=== PATIENT | female | born 1970 | race Caucasian/White ===

== ENCOUNTER → 2018-04-27 15:36 | Outpatient (CLI) | payer OTHER, SELFPAY ==
[2018-04-27 15:58] LABS: Add Manual Diff / Slide Review NO; Basophils Percent Auto 0.6 % (0-2); Eosinophils Percent Auto 1.4 % (2-4); Hematocrit 36.8 % (36-46); Hemoglobin 12.7 g/dL (12.0-16.0); Lymphocytes Percent Auto 26.1 % (25-40); Mean Corpuscular HGB Conc 34.6 % (30-36); Mean Corpuscular Hemoglobin 31.1 PG (26-34); Monocytes Percent Auto 8.1 % (3-14); Neutrophils Absolute Auto 4100 /uL (3000-5900); Neutrophils Percent Auto 63.8 % (50-75); Platelet Count 324 X10^3/uL (150-400); Red Blood Cell Count 4.09 X10^6/uL (4.0-5.2); Red Cell Distribution Width 12.8 % (11.6-14.8); White Blood Cell Count 6.4 X10^3/uL (4.5-11.0)
[2018-04-27 16:10] LABS: Alanine Aminotransferase 24 IU/L (9-52); Albumin 4.2 g/dL (3.5-5.0); Albumin Globulin Ratio 1.4 (1.0-2.8); Alkaline Phosphatase 55 U/L (38-126); Aspartate Aminotransferase 21 IU/L (14-36); Bilirubin Total 0.6 mg/dL (0.2-1.3); Blood Urea Nitrogen 22 mg/dL (7-17); Calcium 9.3 mg/dL (8.4-10.2); Carbon Dioxide 23 mmol/L (22-32); Chloride 104 mmol/L (98-107); Estimated Glomerular Filt Rate 59.4 mL/min (>60); Globulin 3.1 g/dL (1.7-4.1); Glucose 96 mg/dL (70-100); HEMOLYSIS < 15 (0-50); Potassium 4.1 mmol/L (3.4-5.1); Sodium 138 mmol/L (137-145); Total Protein 7.3 g/dL (6.3-8.2)
== END ==
PROVIDERS: Family Provider Family Medicine; PCP Family Medicine; Visit Provider Nurse Practitioner Gerontology
DX: D05.12 Intraductal carcinoma in situ of left breast (principal)
CPT/HCPCS: 36415; 80053; 85025

== ENCOUNTER 2018-05-08 15:36 | Oncology outpatient (ONC) | payer OTHER, SELFPAY ==
[2018-05-08 16:12] VITALS: BP 111/72; PULSE 72; RESP 14; TEMP 37.2; O2SAT 99
--- NOTE | 2018-05-08 16:33 | ONC.APRN.PN ---
Assessment and Plan (1) Breast cancer Current visit: Yes Status: Acute 05/08/18 16:39 Lesa is a very pleasant 47 year old female who remains in clinical remission/surveillance since original diagnosis 2015. Reassuringly no red flags on exam today, no clinical signs or symptoms of disease recurrence. She is tolerating her tamoxifen without adverse effects, no further vaginal bleeding since having endometrial biopsy in November of 2017. She will continue with annual bilateral screening mammograms in November. I did caution her about the use of daily ibuprofen. She does have an acute knee injury she will transition in a week or so to Tylenol. RTC in 6 months for provider visit CBC CMP. Cont daily tamoxifen. - Time Spent with Patient 35 mins PN -Subjective Interval history: Lesa is a very pleasant 47-year-old female who is being seen in the clinic May 08, 2018. She carries a diagnosis of left-sided DCIS in clinical remission/surveillance since original diagnosis was made in 2015. Adjuvant chemotherapy in the form of tamoxifen was initiated November of 2015. Previous visit in November of 2017 the patient was experiencing some vaginal bleeding she was referred to her computer support specialist instructor. She underwent endometrial biopsy which patient reports was ?negative?. Since endometrial biopsy she has not had any further episodes of vaginal bleeding she does still continue to have mild infrequent hot flashes. Otherwise quite stable. Feeling well overall. 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 Clearly she walks quite a bit every day. Activity tolerance is stable. Weight is stable, no change with appetite. No headaches. No new aches or pains. She did injure her left knee a few weeks ago she has been taking Motrin daily. Past Medical/Surgical Hx The patient's past medical history is significant for: 1. 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 Her last mammogram was a bilateral screening back in July 2015. Of note, the patient's DCIS is ER and VA positive at 50% and 60%, respectively. Of note, the patient does have a significant family history with a maternal aunt with cervical cancer, a maternal aunt with pancreatic cancer, and a maternal grandmother with breast cancer. Unfortunately, insurance has denied BRCA testing x2. 2. Malignant melanoma of the left foot diagnosed in 2012, a T1B N1A M0 presentation. Patient remains in surveillance at this time. 3. Eczema involving the dorsum of the hands. Results - Imaging Additional studies: Procedures Administration of [id number]-ebvlyxd-gngefewce, combined (08/30/14) Closure of skin and subcutaneous tissue of other sites (08/30/14) Subtotal mastectomy (05/23/13) Home Medications and Allergies Home Medications Medication Instructions Recorded Confirmed Type tamoxifen 10 mg tablet 10 mg PO BID 05/05/18 05/05/18 History cholecalciferol (vitamin D3) 2,000 unit PO DAILY 05/08/18 05/08/18 History [Vitamin D3] green tea leaf extract [Green Tea] 1 cap PO QAM 05/08/18 05/08/18 History ibuprofen 400 mg PO Q4-6H PRN 05/08/18 05/08/18 History magnesium oxide 400 mg PO DAILY 05/08/18 05/08/18 History Allergies Allergy/AdvReac Type Severity Reaction Status Date / Time No Known Drug Allergies Allergy Verified 05/08/18 16:14 Exam Vital signs: Last Vital Signs Temp 99.0 F 05/08/18 16:12 Pulse 72 05/08/18 16:12 Resp 14 05/08/18 16:12 BP 111/72 05/08/18 16:12 Pulse Ox 99 05/08/18 16:12 Narrative: well appearing - Constitutional positive average body habitus - Routine HEENT Exam Head: Present: normocephalic, atraumatic Eye: Present: conjunctivae pink. Absent: conjunctival icterus, scleral injection ENT: Present: mucous membranes moist - Routine Neck Exam Present: supple. Absent: lymphadenopathy - Routine Chest/Breast/Axilla Exam Chest wall exam standard: Absent: tenderness, mass Breast: Absent: tenderness, induration, mass, erythema Axillae: Absent: lymphadenopathy, mass, tenderness - Routine Respiratory Exam Present: Clear to auscultation bilaterally. Absent: rales, rhonchi, wheezes - Routine Cardiovascular Exam Present: RRR, S1, S2 - Routine Abdominal Exam Present: soft, normoactive bowel sounds. Absent: tenderness, distended, rebound, organomegaly - Routine Extremities Exam Absent: edema, calf tenderness - Routine Skin Exam Present: intact, normal turgor. Absent: petechiae - Routine Neurological Exam Present: alert, oriented X3 - Routine Psychiatric Exam Present: normal affect
--- NOTE | 2018-05-08 16:38 | P.PNONC_ITS ---
Assessment and Plan (1) Breast cancer Current visit: Yes Status: Acute 05/08/18 16:39 Lesa is a very pleasant 47 year old female who remains in clinical remission/ surveillance since original diagnosis 2015. Reassuringly no red flags on exam today, no clinical signs or symptoms of disease recurrence. She is tolerating her tamoxifen without adverse effects, no further vaginal bleeding since having endometrial biopsy in November of 2017. She will continue with annual bilateral screening mammograms in November. I did caution her about the use of daily ibuprofen. She does have an acute knee injury she will transition in a week or so to Tylenol. RTC in 6 months for provider visit CBC CMP. Cont daily tamoxifen. - Time Spent with Patient 35 mins PN -Subjective Interval history: Lesa is a very pleasant 47-year-old female who is being seen in the clinic May 08, 2018. She carries a diagnosis of left-sided DCIS in clinical remission/ surveillance since original diagnosis was made in 2015. Adjuvant chemotherapy in the form of tamoxifen was initiated November of 2015. Previous visit in November of 2017 the patient was experiencing some vaginal bleeding she was referred to her central stores attendant. She underwent endometrial biopsy which patient reports was ?negative?. Since endometrial biopsy she has not had any further episodes of vaginal bleeding she does still continue to have mild infrequent hot flashes. Otherwise quite stable. Feeling well overall. 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 Clearly she walks quite a bit every day. Activity tolerance is stable. Weight is stable, no change with appetite. No headaches. No new aches or pains. She did injure her left knee a few weeks ago she has been taking Motrin daily. Past Medical/Surgical Hx The patient's past medical history is significant for: 1. 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 Her last mammogram was a bilateral screening back in July 2015. Of note, the patient's DCIS is ER and GA positive at 50% and 60%, respectively. Of note, the patient does have a significant family history with a maternal aunt with cervical cancer, a maternal aunt with pancreatic cancer, and a maternal grandmother with breast cancer. Unfortunately, insurance has denied BRCA testing x2. 2. Malignant melanoma of the left foot diagnosed in 2012, a T1B N1A M0 presentation. Patient remains in surveillance at this time. 3. Eczema involving the dorsum of the hands. Results - Imaging Additional studies: Procedures Administration of mddojtmxbt-poilrnh-lqlbeedgy, combined (08/30/14) Closure of skin and subcutaneous tissue of other sites (08/30/14) Subtotal mastectomy (05/23/13) Home Medications and Allergies Home Medications Medication Instructions Recorded Confirmed Type tamoxifen 10 mg tablet 10 mg PO BID 05/05/18 05/05/18 History cholecalciferol (vitamin D3) 2,000 unit PO DAILY 05/08/18 05/08/18 History [Vitamin D3] green tea leaf extract [Green Tea] 1 cap PO QAM 05/08/18 05/08/18 History ibuprofen 400 mg PO Q4-6H PRN 05/08/18 05/08/18 History magnesium oxide 400 mg PO DAILY 05/08/18 05/08/18 History Allergies Allergy/AdvReac Type Severity Reaction Status Date / Time No Known Drug Allergies Allergy Verified 05/08/18 16:14 Exam Vital signs: Last Vital Signs Temp 99.0 F 05/08/18 16:12 Pulse 72 05/08/18 16:12 Resp 14 05/08/18 16:12 BP 111/72 05/08/18 16:12 Pulse Ox 99 05/08/18 16:12 Narrative: well appearing - Constitutional positive average body habitus - Routine HEENT Exam Head: Present: normocephalic, atraumatic Eye: Present: conjunctivae pink. Absent: conjunctival icterus, scleral injection ENT: Present: mucous membranes moist - Routine Neck Exam Present: supple. Absent: lymphadenopathy - Routine Chest/Breast/Axilla Exam Chest wall exam standard: Absent: tenderness, mass Breast: Absent: tenderness, induration, mass, erythema Axillae: Absent: lymphadenopathy, mass, tenderness - Routine Respiratory Exam Present: Clear to auscultation bilaterally. Absent: rales, rhonchi, wheezes - Routine Cardiovascular Exam Present: RRR, S1, S2 - Routine Abdominal Exam Present: soft, normoactive bowel sounds. Absent: tenderness, distended, rebound , organomegaly - Routine Extremities Exam Absent: edema, calf tenderness - Routine Skin Exam Present: intact, normal turgor. Absent: petechiae - Routine Neurological Exam Present: alert, oriented X3 - Routine Psychiatric Exam Present: normal affect
--- NOTE | 2018-09-05 10:43 | ONC.NAV ---
Description: Survivorship Care Plan Summary Activity: Sent copy to patient, faxed letter to PCP notifying them of it's availability in the patient's electronic medical record.
--- NOTE | 2018-11-09 09:39 | ONC.SCHED ---
left a voice mail for this patient to call back and reschedule when she has a [employer] auth in place. [facility] has not seen her in 3 years and needs for her to make an appointment so they can do the [employer] auth.
== END 2019-01-15 13:46 ==
PROVIDERS: Family Provider Family Medicine; PCP Family Medicine; Visit Provider Nurse Practitioner Gerontology
DX: D05.02 Lobular carcinoma in situ of left breast (principal)
CPT/HCPCS: 99214

== ENCOUNTER → 2019-01-24 12:19 | Outpatient (CLI) | payer OTHER, SELFPAY ==
[2019-01-24 12:49] LABS: Add Manual Diff / Slide Review NO; Basophils Absolute Auto 0 /uL (0-100); Basophils Percent Auto 0.5 % (0-2); Eosinophils Absolute Auto 0 /uL (0-450); Eosinophils Percent Auto 0.9 % (2-4); Hematocrit 37.6 % (36-46); Hemoglobin 12.8 g/dL (12.0-16.0); Lymphocytes Absolute Auto 1300 /uL (1100-4500); Mean Corpuscular Hemoglobin 31.2 PG (26-34); Mean Corpuscular Volume 91.7 fL (80-100); Monocytes Absolute Auto 400 /uL (0-900); Monocytes Percent Auto 8.2 % (3-14); Neutrophils Absolute Auto 2800 /uL (1500-7000); Neutrophils Percent Auto 61.4 % (50-75); Platelet Count 346 X10^3/uL (150-400); Red Cell Distribution Width 12.7 % (11.6-14.8); White Blood Cell Count 4.5 X10^3/uL (4.5-11.0)
[2019-01-24 13:14] LABS: Alanine Aminotransferase 31 IU/L (9-52); Albumin 4.3 g/dL (3.5-5.0); Albumin Globulin Ratio 1.5 (1.0-2.8); Alkaline Phosphatase 50 U/L (38-126); Aspartate Aminotransferase 28 IU/L (14-36); Bilirubin Total 0.7 mg/dL (0.2-1.3); Blood Urea Nitrogen 18 mg/dL (7-17); Calcium 9.7 mg/dL (8.4-10.2); Carbon Dioxide 24 mmol/L (22-32); Chloride 105 mmol/L (98-107); Estimated Glomerular Filt Rate > 60.0 mL/min (>60); Globulin 2.9 g/dL (1.7-4.1); Glucose 101 mg/dL (70-100); HEMOLYSIS 25 (0-50); Potassium 4.9 mmol/L (3.4-5.1); Sodium 138 mmol/L (137-145); Total Protein 7.2 g/dL (6.3-8.2)
[2019-01-24 13:15] LABS: Cholesterol 205 mg/dL (140-199); HDL Cholesterol 99 mg/dL (40-60); LDL Cholesterol Calculated 95 mg/dL (<100); Triglycerides 54 mg/dL (35-150)
[2019-01-24 15:55] LABS: Vitamin D 25 Hydroxy (D3) 36.7 ng/mL (30.0-100.0)
== END ==
PROVIDERS: Family Provider Student in an Organized Health Care Education/Training Program; PCP Student in an Organized Health Care Education/Training Program; Visit Provider Nurse Practitioner Gerontology
DX: E55.9 Vitamin D deficiency, unspecified (principal); C50.919 Malignant neoplasm of unspecified site of unspecified female breast; Z13.220 Encounter for screening for lipoid disorders
CPT/HCPCS: 36415; 80053; 80061; 82306; 85025

== ENCOUNTER → 2019-01-31 12:17 | Outpatient (CLI) | payer OTHER, SELFPAY ==
--- NOTE | 2019-01-31 12:18 | DI.MG.S_ITS ---
BILATERAL DIGITAL SCREENING MAMMOGRAM 3D/2D WITH CAD POST LUMPECTOMY: 01/31/2019 CLINICAL: Routine screening. Personal history of right breast cancer. Family history of breast cancer. Comparison is made to exams dated: 12/21/2017 mammogram, 11/09/2016 mammogram, and 07/21/2015 mammogram - Located [facility]. There are scattered fibroglandular elements in both breasts. Current study was also evaluated with a Computer Aided Detection (CAD) system. There are increasing calcifications in the right breast superior lateral quadrant middle depth, near the postsurgical changes from prior lumpectomy in the superior right breast. No other significant masses, calcifications, or other findings are seen in either breast. IMPRESSION: INCOMPLETE: NEEDS ADDITIONAL IMAGING EVALUATION Increasing calcifications in the right breast superior lateral quadrant middle depth, near the postsurgical changes from prior lumpectomy in the superior right breast. These may represent calcifications from fat necrosis/oil cysts. Additional views including magnification views with possible ultrasound are recommended. This exam was interpreted at Station ID: [id number]. NOTE: For mammograms, a report in lay terms will be sent to the patient. Approximately 15% of breast malignancies will not be visualized mammographically. In the management of a palpable breast mass, a negative mammogram must not discourage biopsy of a clinically suspicious lesion. Electronically Signed By: Aneudy Duran M.D. ecl/:01/31/2019 14:25:58 letter sent: Additional Imaging Needed ACR BI-RADS Category 0: Incomplete [id number]
== END ==
PROVIDERS: PCP Student in an Organized Health Care Education/Training Program; Visit Provider Student in an Organized Health Care Education/Training Program
DX: Z12.31 Encounter for screening mammogram for malignant neoplasm of breast (principal); Z85.3 Personal history of malignant neoplasm of breast; Z80.3 Family history of malignant neoplasm of breast
CPT/HCPCS: 77063; 77067

== ENCOUNTER → 2019-02-21 14:48 | Outpatient (CLI) | payer OTHER, SELFPAY ==
--- NOTE | 2019-02-21 14:50 | DI.MG.S_ITS ---
UNILATERAL RIGHT DIGITAL DIAGNOSTIC MAMMOGRAM 3D/2D WITH ADDITIONAL VIEWS: 02/21/2019 CLINICAL: Additional evaluation requested from prior study. Comparison is made to exams dated: 01/31/2019 mammogram, 12/21/2017 mammogram, and 11/09/2016 mammogram - [facility]. There are scattered fibroglandular elements in right breast. The previously noted 0.5 x 0.4 x 0.3 cm increasing calcifications in the right breast superior lateral quadrant middle depth near the postsurgical changes from prior lumpectomy in the superior right breast persist with additional views, and have the appearance of peripheral rim calcifications surrounding lucent fat consistent with calcifications of fat necrosis. There are however additional 0.4 x 0.4 cm grouped punctate calcifications with an associated oval asymmetry seen only on the magnification RLM view located at middle depth in the superior right breast approximately 2.0 cm inferior to the calcifications of fat necrosis described above. Additional postsurgical changes, scarring, and surgical clips in the right breast are noted. IMPRESSION: SUSPICIOUS OF MALIGNANCY 1) 0.4 x 0.4 cm grouped punctate calcifications with an associated oval asymmetry seen only on the magnification RLM view located at middle depth in the superior right breast. A stereotactic biopsy is recommended. 2) 0.5 cm increasing calcifications in the right breast superior lateral quadrant middle depth are most consistent with fat necrosis/dystrophic calcifications and are probably benign. A follow-up mammogram in 6 months is recommended. These results and recommendations were discussed with the patient in person at the time of the exam by [facility] Radiologist Dr. Rosey Jack. This exam was interpreted at Station ID: [id number]. NOTE: For mammograms, a report in lay terms will be sent to the patient. Approximately 15% of breast malignancies will not be visualized mammographically. In the management of a palpable breast mass, a negative mammogram must not discourage biopsy of a clinically suspicious lesion. Electronically Signed By: Aneudy Duran M.D. ecl/:02/21/2019 16:08:09 letter sent: Biopsy Required ACR BI-RADS Category 4a: Suspicious abnormality - low suspicion for malignancy [id number]
== END ==
PROVIDERS: PCP Student in an Organized Health Care Education/Training Program; Visit Provider Student in an Organized Health Care Education/Training Program
DX: R92.8 Other abnormal and inconclusive findings on diagnostic imaging of breast (principal); R92.1 Mammographic calcification found on diagnostic imaging of breast
CPT/HCPCS: 77065; G0279

== ENCOUNTER → 2019-09-03 14:44 | Outpatient (CLI) | payer OTHER, SELFPAY ==
--- NOTE | 2019-09-03 14:46 | DI.MG.S_ITS ---
BILATERAL DIGITAL DIAGNOSTIC MAMMOGRAM 3D/2D POST LUMPECTOMY: 09/03/2019 CLINICAL: Patient returns for a 6 month follow up of the right breast. Post biopsy. Requested Bilateral imaging. Comparison is made to exams dated: 03/06/2019 stereotactic biopsy - [facility], 02/21/2019 mammogram, 01/31/2019 mammogram, 12/21/2017 mammogram, and 11/09/2016 mammogram - [facility]. There are scattered fibroglandular elements in both breasts. There are redemonstrated postsurgical and postprocedural changes of the superior right breasst. The previously described 0.4 x 0.4 cm grouped punctate calcifications with an associated oval asymmetry seen only on the magnification RLM view on comparison diagnostic mammogram of 02/21/19 are no longer well seen, secondary to reported stereotactic biopsy of 03/06/19. There is a biopsy clip in the superior right breast corresponding to the site of stereotactic biopsy of 03/06/19, which was biopsy proven to be benign. The previously identified 0.5 cm calcifications in the right breast superior lateral quadrant middle depth remain stable to prior comparison exam of 02/21/19 and again are most consistent with fat necrosis/dystrophic calcifications. No new suspicious masses or abnormalities are identified bilaterally by mammography. IMPRESSION: PROBABLY BENIGN Previously identified 0.5 cm calcifications in the right breast superior lateral quadrant middle depth remain stable to prior comparison exam of 02/21/19 and again are most consistent with fat necrosis/dystrophic calcifications. A follow-up mammogram in 6 months is recommended to demonstrate stability. The patient is advised to monitor her breasts and to return sooner for reevaluation if she feels anything grow or change in her breasts. This exam was interpreted at Station ID: [id number]. NOTE: For mammograms, a report in lay terms will be sent to the patient. Approximately 15% of breast malignancies will not be visualized mammographically. In the management of a palpable breast mass, a negative mammogram must not discourage biopsy of a clinically suspicious lesion. Electronically Signed By: Aneudy Duran M.D. ecl/:09/03/2019 15:35:42 copy to: Jethro Mitchell letter sent: Followup Recommended ACR BI-RADS Category 3: Probably benign [id number]
== END ==
PROVIDERS: PCP Student in an Organized Health Care Education/Training Program
DX: R92.8 Other abnormal and inconclusive findings on diagnostic imaging of breast (principal); R92.1 Mammographic calcification found on diagnostic imaging of breast; D05.91 Unspecified type of carcinoma in situ of right breast; Z79.810 Long term (current) use of selective estrogen receptor modulators (SERMs)
CPT/HCPCS: 77066; G0279

== ENCOUNTER → 2020-03-20 10:16 | Outpatient (CLI) | payer OTHER, SELFPAY ==
--- NOTE | 2020-03-20 10:18 | DI.MG.S_ITS ---
UNILATERAL RIGHT DIGITAL DIAGNOSTIC MAMMOGRAM 3D/2D: 03/20/2020 CLINICAL: Short term follow up per referring doctor. Comparison is made to exams dated: 09/03/2019 mammogram, 02/21/2019 mammogram, and 01/31/2019 mammogram - [facility]. There are scattered fibroglandular elements in right breast. There are grouped coarse dystrophic punctate calcifications in the right breast at 11 o'clock middle depth. These are not significantly changed. No other significant masses or calcifications are seen in the breast. IMPRESSION: PROBABLY BENIGN The grouped coarse dystrophic punctate calcifications in the right breast are probably benign. A follow-up mammogram in 6 months is recommended. A follow-up mammogram in 6 months is recommended to demonstrate stability. Patient will also be due for screening mammogram of the contralateral breast at that time. This exam was interpreted at Station ID: [id number]. NOTE: For mammograms, a report in lay terms will be sent to the patient. Approximately 15% of breast malignancies will not be visualized mammographically. In the management of a palpable breast mass, a negative mammogram must not discourage biopsy of a clinically suspicious lesion. Electronically Signed By: Mike martinez/:03/20/2020 11:11:44 letter sent: Followup Recommended ACR BI-RADS Category 3: Probably benign [id number]
== END ==
PROVIDERS: PCP Student in an Organized Health Care Education/Training Program; Referring Provider Internal Medicine Hematology & Oncology; Visit Provider Internal Medicine Hematology & Oncology
DX: R92.1 Mammographic calcification found on diagnostic imaging of breast (principal); D05.11 Intraductal carcinoma in situ of right breast
CPT/HCPCS: 77065; G0279

== ENCOUNTER → 2020-03-24 12:40 | Oncology outpatient (ONC) | payer OTHER, SELFPAY ==
[2019-01-30 16:15] VITALS: BP 137/86; PULSE 76; RESP 18; TEMP 36.8; O2SAT 99
--- NOTE | 2019-01-30 16:29 | P.PNONC_ITS ---
PN -Subjective Interval history: Diagnosis: Right-sided DCIS Previous treatment: 1. Lumpectomy in November 2015. 2. Tamoxifen since 2015. She did not have radiation. 3. She has a history of a melanoma on the left foot, T1b N1 a treated with surgical resection in March 2013. Interval history: The patient is a 48-year-old woman who returns today for follow-up. She has a history of DCIS for which she has been taking tamoxifen. She reports that she is tolerating it well. She is not having any hot flashes. She is having regular periods. She denies any new aches or pains. No shortness of breath or cough. No GI complaints. She has not noticed any changes in the breast. No adenopathy. She is scheduled for a mammogram tomorrow. She is getting annual skin checks by senior network systems engineer. She is without complaint today. Her only prescription is tamoxifen. She also takes magnesium vitamin D and vitamin. Home Medications and Allergies Home Medications Medication Instructions Recorded Confirmed Type cholecalciferol (vitamin D3) 2,000 unit PO DAILY 05/08/18 01/30/19 History [Vitamin D3] green tea leaf extract [Green Tea] 1 cap PO QAM 05/08/18 01/30/19 History ibuprofen 400 mg PO Q4-6H PRN 05/08/18 01/30/19 History magnesium oxide 400 mg PO DAILY 05/08/18 01/30/19 History tamoxifen 20 mg DAILY 01/30/19 01/30/19 History Allergies Allergy/AdvReac Type Severity Reaction Status Date / Time No Known Drug Allergies Allergy Verified 01/11/19 10:03 Exam Vital signs: Vital Signs Temp Pulse Resp BP Pulse Ox 01/30/19 16:15 98.2 F 76 18 137/86 99 Intake and Output 01/30/19 01/30/19 01/30/19 07:59 15:59 23:59 Other: Weight 86.2 kg Patient Weight 01/30/19 23:59 Weight 86.2 kg - Constitutional positive no acute distress, positive average body habitus - Routine HEENT Exam Head: Present: normocephalic, atraumatic Eye: Present: EOMI, PERRL. Absent: conjunctival icterus, scleral injection ENT: Present: mucous membranes moist, oropharynx clear - Routine Neck Exam Present: supple. Absent: lymphadenopathy, thyromegaly - Routine Chest/Breast/Axilla Exam Comments: Breast exam shows a well-healed incision on the lateral right breast. There is no suspicious nodules or masses. She does have fibrocystic changes. There is no axillary adenopathy on either side. - Routine Respiratory Exam Present: Clear to auscultation bilaterally. Absent: rales, wheezes - Routine Cardiovascular Exam Present: RRR, S1, S2. Absent: murmur - Routine Abdominal Exam Present: soft, normoactive bowel sounds. Absent: tenderness, organomegaly, mass - Routine Extremities Exam Absent: cyanosis, clubbing - Routine Skin Exam Present: intact. Absent: petechiae, rash - Routine Neurological Exam Present: alert, oriented X3 - Routine Psychiatric Exam Present: normal affect, normal thought process Results - Imaging Additional studies: Procedures Administration of rwssnscyyx-sibvjvw-ndwxjmztj, combined (08/30/14) Closure of skin and subcutaneous tissue of other sites (08/30/14) Assessment and Plan (1) Breast cancer Current visit: No Status: Resolved 48-year-old woman with a history of DCIS. She is doing well on tamoxifen and tolerating it without any difficulty. She is due for a mammogram tomorrow. She will return to clinic in 6 months for follow-up.
[2019-08-07 13:07] VITALS: BP 133/83; PULSE 74; RESP 18; TEMP 36.8; O2SAT 98
--- NOTE | 2019-08-07 13:18 | ONC.PN ---
PN -Subjective Interval history: Diagnosis: Right-sided DCIS Previous treatment: 1. Lumpectomy in November 2015. 2. Tamoxifen since 2015. She did not have radiation. 3. She has a history of a melanoma on the left foot, T1b N1 a treated with surgical resection in March 2013. Interval history: The patient is a 49-year-old woman who returns today for follow-up. She has a history of DCIS for which she has been taking tamoxifen. She reports that she is tolerating it well. She has some occasional hot flashes but does not find the particularly severe bothersome. She denies any new aches or pains. She has not noticed any changes in the breast. No adenopathy. No shortness of breath or cough. No GI complaints. She denies any other changes in her health. Her only prescription is tamoxifen. She also takes magnesium vitamin D and vitamin. - Patient Self-Reported Symptoms SR Endocrine issues: Hot flashes Home Medications and Allergies Home Medications Medication Instructions Recorded Confirmed Type cholecalciferol (vitamin D3) 2,000 unit PO DAILY 05/08/18 08/07/19 History [Vitamin D3] green tea leaf extract [Green Tea] 1 cap PO QAM 05/08/18 08/07/19 History ibuprofen 400 mg PO Q4-6H PRN 05/08/18 08/07/19 History magnesium oxide 400 mg PO DAILY 05/08/18 08/07/19 History tamoxifen 20 mg DAILY 01/30/19 08/07/19 History glucosamine sulfate [Glucosamine] 500 mg DAILY 08/07/19 08/07/19 History pyridoxine (vitamin B6) [Vitamin 100 mg DAILY 08/07/19 08/07/19 History B-6] Allergies Allergy/AdvReac Type Severity Reaction Status Date / Time No Known Drug Allergies Allergy Verified 07/01/19 10:12 Exam Vital signs: Vital Signs Temp Pulse Resp BP Pulse Ox 08/07/19 13:07 98.2 F 74 18 133/83 98 Intake and Output 08/06/19 08/07/19 08/07/19 23:59 07:59 15:59 Other: Weight 87.3 kg Patient Weight 08/07/19 23:59 Weight 87.3 kg - Constitutional positive no acute distress, positive average body habitus - Routine HEENT Exam Head: Present: normocephalic, atraumatic Eye: Present: EOMI, PERRL. Absent: conjunctival icterus, scleral injection ENT: Present: mucous membranes moist, oropharynx clear - Routine Neck Exam Present: supple. Absent: lymphadenopathy, thyromegaly - Routine Chest/Breast/Axilla Exam Comments: Breast exam shows a well-healed incision on the right breast. There is no nodularity or masses. No suspicious masses in the left breast. No axillary adenopathy on either side. - Routine Respiratory Exam Present: Clear to auscultation bilaterally. Absent: rales, wheezes - Routine Cardiovascular Exam Present: RRR, S1, S2. Absent: murmur - Routine Abdominal Exam Present: soft, normoactive bowel sounds. Absent: tenderness, organomegaly, mass - Routine Extremities Exam Absent: cyanosis, clubbing, edema - Routine Back/Spine Exam Back/Spine: Absent: vertebral tenderness - Routine Skin Exam Present: intact. Absent: petechiae, rash - Routine Neurological Exam Present: alert, oriented X3 - Routine Psychiatric Exam Present: normal affect, normal thought process Results - Imaging Additional studies: Procedures Administration of gfdstuonpu-faqmjnl-gcpbdlwvi, combined (08/30/14) Closure of skin and subcutaneous tissue of other sites (08/30/14) Assessment and Plan (1) Breast cancer Current visit: No Status: Resolved 48-year-old woman with a history of DCIS. She is doing well on tamoxifen and tolerating it without any difficulty. She has completed a little bit more than 3 years of therapy. She will continue for a total of 5 years. She is due for a mammogram and will get that scheduled for her. She will return to clinic here in 6 months for follow-up but sooner should the need arise.
--- NOTE | 2020-03-24 12:35 | ONC.PN ---
PN -Subjective Interval history: Diagnosis: Right-sided DCIS Previous treatment: 1. Lumpectomy in November 2015. 2. Tamoxifen since 2015. She did not have radiation. 3. She has a history of a melanoma on the left foot, T1b N1 a treated with surgical resection in March 2013. Interval history: The patient is a 49-year-old woman who returns today for follow-up. She has a history of DCIS for which she has been taking tamoxifen. She reports that she is tolerating it well. She has some occasional hot flashes but does not find the particularly severe bothersome. She denies any new aches or pains. She has not noticed any changes in the breast. No adenopathy. No shortness of breath or cough. No GI complaints. She denies any other changes in her health. Patient reported no new signs or symptoms. She is fully active. She underwent repeat right breast diagnostic mammogram on 03/20/2020. The mammogram showed dystrophic grouped coarse calcification in the right breast probably benign. A follow-up mammogram in 6 months is recommended. Her only prescription is tamoxifen. She also takes magnesium vitamin D and vitamin. - Patient Self-Reported Symptoms SR Endocrine issues: Hot flashes - Additional ROS All systems PM: reviewed and no additional remarkable complaints except as stated Home Medications and Allergies Home Medications Medication Instructions Recorded Confirmed Type cholecalciferol (vitamin D3) 2,000 unit PO DAILY 05/08/18 03/24/20 History [Vitamin D3] green tea leaf extract [Green Tea] 1 cap PO QAM 05/08/18 03/24/20 History ibuprofen 400 mg PO Q4-6H PRN 05/08/18 03/24/20 History magnesium oxide 400 mg PO DAILY 05/08/18 03/24/20 History tamoxifen 20 mg DAILY 01/30/19 03/24/20 History glucosamine sulfate [Glucosamine] 500 mg DAILY 08/07/19 03/24/20 History pyridoxine (vitamin B6) [Vitamin 100 mg DAILY 08/07/19 03/24/20 History B-6] Allergies Allergy/AdvReac Type Severity Reaction Status Date / Time No Known Drug Allergies Allergy Verified 03/18/20 14:38 Exam Narrative: ECOG 1 Vitals above reviewed Constitutional: well developed, and well nourished, and well groomed, not in any acute respiratory distress, pleasant and cooperative. HEENT: NCAT, EOMI, PERRLA. Anicteric sclera. Oral mucosa clean, no erythema, no ulcers noted on the oral mucosa, no enlargement of tonsils, and no pharynx secretions noted. Neck: Supple and symmetrical, no palpable masses. No palpable thyromegaly. Respiratory: No use of accessory muscles. CTAB, no wheezes. 2. Cardiovascular: RRR, S1 and S2 normal, no M/G/R. No edema of lower extremities. 3. Abdomen: Soft, NTND, no palpable masses. No palpable hepatosplenomegaly. No hernia. 3. Lymphatic: no palpable palpable lymph nodes in the neck, axillae, or groins. 1. Musculoskeletal: normal gait and station 2. Skin: No rashes, lesions, or ulcers. No induration, or subcutaneous nodules. 3. Neurological: CN II-XII grossly intact. No focal motor or sensory deficit. 4. Psychiatric: Normal judgment and insight. AOx3. Normal memory (recent and remote). Normal mood and affect. 5. Breast Exam: Left breast is without nipple retraction, no skin changes, no palpable lumps, no palpable lymph nodes in the left axilla; The right breast is without nipple retraction, barely visible surgical wound noted in the upper outer quadrant, no palpable lumps, no palpable lymph nodes in the left axilla. All physical examinations were chaperoned Results - Imaging Additional studies: Procedures Administration of ojddzhbzop-pdykrva-jyszfbidj, combined (08/30/14) Closure of skin and subcutaneous tissue of other sites (08/30/14) Assessment and Plan (1) Breast cancer 48-year-old woman with a history of DCIS. She is doing well on tamoxifen and tolerating it without any difficulty. She has completed a little bit more than 3 years of therapy. She will continue for a total of 5 years. She is due for a mammogram and will get that scheduled for her. She will return to clinic here in 6 months for follow-up but sooner should the need arise. Assessment: Overall patient has tolerated tamoxifen very well. I will continue the treatment with plan for a total of 5 years. As far as the mammograms concerned will follow-up radiologist's recommendation will have the patient come back in 6 months for repeat screening mammogram. Plan: Continue Tamoxifen 20 mg daily RTC in 6 month, CBC, CMP, screening mammogram prior to visit
[2020-03-24 12:47] VITALS: BP 134/86; PULSE 77; RESP 18; TEMP 36.8; O2SAT 97
== END ==
PROVIDERS: Family Provider Student in an Organized Health Care Education/Training Program; PCP Student in an Organized Health Care Education/Training Program
DX: D05.11 Intraductal carcinoma in situ of right breast (principal); Z79.810 Long term (current) use of selective estrogen receptor modulators (SERMs); Z85.820 Personal history of malignant melanoma of skin
CPT/HCPCS: 99214

== ENCOUNTER → 2020-04-06 09:20 | Outpatient (CLI) | payer OTHER, SELFPAY ==
--- NOTE | 2020-04-06 09:22 | DI.RAD.S_ITS ---
PROCEDURE: FL BARIUM SWALLOW W SPEECH INDICATIONS: Globus sensation in epper esophagus TECHNIQUE: Examination was conducted in conjunction with speech pathology per standard protocol. In the lateral projection, filming was performed of the patient swallowing. AP projection filming may also be performed with patient swallowing. COMPARISON: None. FINDINGS: Function: The oral preparatory phase appears normal, with proper containment. The subsequent oral propulsive phase, pharyngeal phase, and esophageal phase of swallowing also appear normal with all proffered substances. No laryngotracheal penetration or aspiration. No pathologic vallecular pooling. Note was made of degenerative disc disease with disc height reduction at the C4-5 and C5-6 levels. Mild soft tissue prominence at the dorsal aspect of the upper esophageal barium column was noted, but not obstructive in its effect. There is a superimposed mild cricopharyngeus bar seen episodic leak during swallowing dorsally. Morphology: No cricopharyngeal bar is identified. No cervical esophageal webs. No Zenker's diverticulum. No strictures. IMPRESSION: No penetration or aspiration of contrast during swallowing. Mild impingement against the barium column dorsally related to a combination of degenerative disc disease with fibrous hypertrophy and likely slight cricopharyngeus bar across the dorsal margin of the barium column. Dictated by: Javan Fernandez M.D. on 04/06/2020 at 11:40 Approved by: Javan Fernandez M.D. on 04/06/2020 at 11:42
--- NOTE | 2020-04-06 12:56 | ST.SWALLOW ---
Visit Care Team Role Provider Type Jethro Spears MD Attending Provider Physician Primary Care Provider Referring Provider Specialty: Internal Medicine Address: [address] [place] [address], [address], [place], [address] Email: [email or web address] Modified Barium Swallow Study HOOF [employer]IMMER Modified Barium Swallow Study Start: 04/06/20 12:07 Freq: Status: Active Protocol: Document 04/06/20 12:07 MEGHANA (Rec: 04/06/20 12:56 MEGHANA [id number]) Modified Barium Swallow Study Total Time Visit Start Time 09:30 Visit Stop Time 10:00 Total Visit Minutes 30 Visit Information Insurance Information [facility] Referral Referring Physician Dr. Jethro Spears Reason for Referral Dysphagia Setting Setting Outpatient Care Patient Information Identification Type Name,ID Card Patient History The pt is a 49-yr-old female with complaints of frequent sticking sensation with solids primarily at upper esophageal area, occasionally base of throat, often painful in nature, like very bad heartburn. She experiences little relief with liquid wash and attempts to chew food very well. She notes sensation especially occurs with bulky and/or sticky foods such as breads and peanut butter. She denied coughing with oral intake and stated she has been able to breath without difficulty with each episode. Subjective Observations The pt arrived on time and provided case history. She was able to follow all instructions. Patient Positioning Position View Lat-A/P Imaging Lateral View Textures Administered Trials Presented Thin Liquid via Spoon,Thin Liquid via Cup,[place] Liquid via Spoon,[place] Liquid via Cup,Honey Liquid via Spoon, Dysphagia Blenderized Textures ,Regular Textures Oral Phase Source: MBSIMP (TM) (C) Bolus Specific Scoring Grid Lip Closure No Impairment (WNL) Tongue Control During Bolus Hold No Impairment (WNL) Bolus Prep/Mastication No Impairment (WNL) Bolus Transport/Lingual Motion No Impairment (WNL) A/P Lingual Propulsion Delay No Oral Residue Minimal Impairment Residue Clearing No Impairment (WNL) Nasal Regurgitation No Additional Oral Phase Observations Oral Peripheral Exam: Symmetrical structures WNL of strength, coordination and ROM . Pt has complete natural dentition in excellent condition. Oral Phase: WNL. Minimal oral residue present which cleared with subsequent swallows, not abnormal for intake of barium contrast. Pharyngeal Phase Source: MBSIMP (TM) (C) Bolus Specific Scoring Grid Delayed Initiation of Pharyngeal Swallow Yes: Mild, to vallecula with HTL, pudding, cookie Soft Palate Elevation No Impairment (WNL) Tongue Base Strength/Range of Motion No Impairment (WNL) Residue Along the Tongue Base Yes: Trace Clearance of Residue Along Tongue Base No Impairment (WNL) Laryngeal Elevation No Impairment (WNL) Anterior Hyoid Movement No Impairment (WNL) Epiglottic Range of Motion No Impairment (WNL) Clearance of Vallecular Residue WFL Pharyngeal Stripping Wave No Impairment (WNL) Pharyngeal Contraction No Impairment (WNL) Posterior Pharyngeal Wall Residue No Upper Esophageal Sphincter Opening No Impairment (WNL) Residue in the Pyriform Sinuses Yes: Trace Clearance of Residue in the Pyriform Minimal Impairment Sinuses Pharyngoesophageal Backflow Observed No Additional Pharyngeal Phase Observations Mildly delayed swallow trigger with increased bolus weight to level of vallecula. No penetration or aspiration was observed. Minimal residue was observed at pyriform sinuses secondary to a combination of degenerative disc disease with fibrous hypertrophy and likely slight cricopharyngeus 'bar' across the dorsal margin of the barium column, as described by Radiologist. A/P View Textures Administered Trials Presented [place] Liquid via Cup, Dysphagia Blenderized Textures ,Barium Tablet A/P View Observations Pharyngeal Contraction No Impairment (WNL) Esophageal Clearance Upright Position Minimal Impairment Esophageal Observations Esophageal Function Rapid bolus flow through esophagus and into stomach was observed. Upon video review, mild residue was observed at mid level of esophagus, which may account for pt's complaints and occasional discomfort, although she had no complaints of sticking sensation during this study. Clinical Impressions Dysphagia Type WNL Findings The pt presents with normal oral and pharyngeal phases of swallow. Fibrous hypertrophy and likely slight cricopharyngeus bar at C4-C5 level may account for occasional sticking sensation at base of throat, and mild esophageal residue may indicate contribution to esophageal discomfort. Referral to GI is recommended for further assessment. The pt was educated of findings and recommended to consume small bites, chew well , and follow solids with liquid wash to assist pharyngeal and esophageal clearance. She was recommended to consult with GI if esophageal discomfort continues. She verbalized understanding and agreement. Patient Appropriate for Therapy No Recommendations Diet Liquids Order Thin Diet Order Regular Medication Recommendation As Tolerated Aspiration Precautions Recommended Precautions Upright at 90 Degrees, Alternate Liquids/Solids,Small Bites/Sips Additional Precautions Chew well Treatment Plan Recommended Referrals GI Consult
== END ==
PROVIDERS: PCP Student in an Organized Health Care Education/Training Program; Referring Provider Student in an Organized Health Care Education/Training Program; Visit Provider Student in an Organized Health Care Education/Training Program
DX: R13.10 Dysphagia, unspecified (principal); M50.321 Other cervical disc degeneration at C4-C5 level
CPT/HCPCS: 74230; 92611

== ENCOUNTER → 2020-10-21 08:41 | Outpatient (CLI) | payer OTHER, SELFPAY ==
--- NOTE | 2020-10-21 08:42 | DI.MG.S_ITS ---
BILATERAL DIGITAL DIAGNOSTIC MAMMOGRAM 3D/2D SHORT-TERM FOLLOW-UP POST LUMPECTOMY: 10/21/2020 CLINICAL: Patient returns for a short term follow up of the right breast, due for bilateral exam. Comparison is made to exams dated: 03/20/2020 mammogram, 09/03/2019 mammogram, 02/21/2019 mammogram, and 01/31/2019 mammogram - [facility]. There are scattered fibroglandular elements in both breasts. There are grouped coarse heterogeneous punctate calcifications in the right breast at 11 o'clock middle depth. These are not significantly changed compared to prior studies dating back to 09/03/19. Post-surgical changes are redemonstrated in the right breast. No other significant masses, calcifications, or other findings are seen in either breast. IMPRESSION: PROBABLY BENIGN The grouped coarse heterogeneous punctate calcifications in the right breast likely represent fat necrosis and are similar to prior studies dating back to 09/03/19. The findings are probably benign but a follow-up mammogram in 6 months is recommended to demonstrate 2 year stability. A follow-up mammogram in 6 months is recommended to demonstrate stability. This exam was interpreted at Station ID: [id number]. NOTE: For mammograms, a report in lay terms will be sent to the patient. Approximately 15% of breast malignancies will not be visualized mammographically. In the management of a palpable breast mass, a negative mammogram must not discourage biopsy of a clinically suspicious lesion. Electronically Signed By: Mike Peña M.D. ddscar/:10/21/2020 09:54:52 letter sent: Followup Recommended ACR BI-RADS Category 3: Probably benign 3343F
== END ==
PROVIDERS: PCP Student in an Organized Health Care Education/Training Program; Referring Provider Student in an Organized Health Care Education/Training Program; Visit Provider Student in an Organized Health Care Education/Training Program
DX: R92.8 Other abnormal and inconclusive findings on diagnostic imaging of breast (principal); R92.1 Mammographic calcification found on diagnostic imaging of breast; C50.919 Malignant neoplasm of unspecified site of unspecified female breast
CPT/HCPCS: 77066; G0279

== ENCOUNTER → 2021-05-03 09:28 | Outpatient (CLI) | payer OTHER, SELFPAY ==
--- NOTE | 2021-05-03 09:30 | DI.MG.S_ITS ---
BILATERAL DIGITAL DIAGNOSTIC MAMMOGRAM 3D/2D SHORT-TERM FOLLOW-UP: 05/03/2021 CLINICAL: Short term follow up. Comparison is made to exams dated: 10/21/2020 mammogram, 03/20/2020 mammogram, 09/03/[address] - [facility], 03/06/2019 specimen, and 03/06/2019 stereotactic biopsy - [facility]. There are scattered fibroglandular elements in both breasts. No change in the grouped coarse heterogeneous punctate calcifications in the right breast at 11 o'clock middle depth. No other significant masses, calcifications, or other findings are seen in either breast. IMPRESSION: BENIGN The grouped coarse heterogeneous punctate calcifications in the right breast are unchanged and benign. Return to annual mammogram screening schedule is recommended. This exam was interpreted at Station ID: [id number]. NOTE: For mammograms, a report in lay terms will be sent to the patient. Approximately 15% of breast malignancies will not be visualized mammographically. In the management of a palpable breast mass, a negative mammogram must not discourage biopsy of a clinically suspicious lesion. Electronically Signed By: Reji Persaud M.D. jr/:05/03/2021 10:01:11 letter sent: Normal Exam ACR BI-RADS Category 2: Benign Finding(s) 3342F
== END ==
PROVIDERS: PCP Student in an Organized Health Care Education/Training Program; Referring Provider Student in an Organized Health Care Education/Training Program; Visit Provider Student in an Organized Health Care Education/Training Program
DX: C50.919 Malignant neoplasm of unspecified site of unspecified female breast; R92.8 Other abnormal and inconclusive findings on diagnostic imaging of breast; R92.1 Mammographic calcification found on diagnostic imaging of breast
CPT/HCPCS: 77066; G0279

== ENCOUNTER → 2021-05-11 09:42 | Outpatient (CLI) | payer OTHER, SELFPAY ==
[2021-05-11 11:18] LABS: COVID19 -Nasal RAPID Negative (Negative)
== END ==
PROVIDERS: PCP Student in an Organized Health Care Education/Training Program; Visit Provider Surgery
DX: Z20.822 Contact with and (suspected) exposure to COVID-19 (principal)
CPT/HCPCS: 87635; C9803

== ENCOUNTER 2021-05-13 14:50 | Day surgery (SDC) | payer OTHER, SELFPAY ==
[2021-05-13 15:09] VITALS: BP 124/83; PULSE 73; RESP 16; TEMP 36.4; O2SAT 100; BMI 35.0
[2021-05-13] MEDS: LACTATED RINGERS 1,000 ML 200 ML IV (15:21)
--- NOTE | 2021-05-13 15:39 | PM.HP.1 ---
History of Present Illness History of Present Illness Chief complaint: [facility] Narrative: The patient presents for colorectal sreening. They have never had any previous examination for such. No personal or family history of colon cancer. On further history denies any recent gastrointestinal symptoms. No nausea, vomiting, abdominal pain, loss of appetite, unexplained weight loss, change in bowel habits, diarrhea, constipation, melena, hematochezia, or bright red blood per rectum. Patient History Medical History (Updated 03/23/20 @ 16:22 by Alyssa Dick MD) Chlamydia (~1994) Eczema (~1983) Genital warts (~1992) Herpes (~1998) Melanoma (~2012) Surgical History Anesthesia History of surgery (~2012) Status post breast lumpectomy (~2012) Status post delivery (~2002) Status post delivery (~2000) Family & Social History Family History Father Age: 72 COPD (chronic obstructive pulmonary disease) Grandfather Breast cancer Social History: household members significant other Tobacco & Substance use: Smoking Status Never smoker alcohol intake frequency a few times a week Substance Use Type does not use Meds Home Medications and Allergies Home Medications Medication Instructions Recorded Confirmed Type cholecalciferol (vitamin D3) 50 2,000 unit PO DAILY 05/08/18 05/13/21 History mcg (2,000 unit) tablet (Vitamin D3) green tea leaf extract (Green Tea) 1 cap PO QAM 05/08/18 05/13/21 History ibuprofen 200 mg tablet 200 mg PO Q6H PRN 05/08/18 05/13/21 History magnesium oxide 400 mg (241.3 mg 400 mg PO DAILY 05/08/18 05/13/21 History magnesium) tablet glucosamine sulfate 500 mg tablet 500 mg DAILY 08/07/19 05/13/21 History (Glucosamine) pyridoxine (vitamin B6) 100 mg 100 mg DAILY 08/07/19 05/13/21 History tablet (Vitamin B-6) Allergies Allergy/AdvReac Type Severity Reaction Status Date / Time No Known Drug Allergies Allergy Verified 04/12/21 14:59 Review of Systems Review of Systems ROS: Yes All systems reviewed with the patient and are negative except as otherwise documented Exam Vital Signs (past 8 hours): - 05/13/21 15:09 Temperature 97.5 F L Pulse Rate 73 Respiratory Rate 16 Blood Pressure 124/83 Pulse Oximetry 100 Oxygen Delivery Method Room Air Narrative Exam Narrative: GENERAL-well developed adult woman, no acute distress HEENT-no scleral icterus, hearing intact NECK-no JVD, trachea midline CVS- regular rate, no peripheral edema RESP-unlabored respiratory effort, no audible wheezing GI-soft, nontender nondistended MSK-no cyanosis or clubbing, extremities without deformity SKIN-warm, dry NEURO-alert and oriented, no focal deficits PYSCH-Appropriate mood and affect Assessment & Plan Assessment & Plan narrative: The patient requires colorectal screening and colonoscopy is recommended. Technical details were discussed. Risks, benefits, alternatives explained. Risks including but not limited to myocardial infarction, aspiration, bleeding, pain, missed lesion, incomplete examination, need for further radiographic studies, colonic perforation, and need for major abdominal surgery were discussed. All questions were answered to their satisfaction, and they are in agreement with this plan.
[2021-05-13] MEDS: fentaNYL 250 MCG/5 ML INJ IV (16:05)
[2021-05-13] MEDS: MIDAZOLAM 5 MG/5 ML VIAL IV (16:06)
--- NOTE | 2021-05-13 16:27 | PM.OP.ENDO ---
Operative Date/Time/Diagnoses Date of procedure: 05/13/21 Time of procedure: 16:27 Pre-op diagnosis: Screening colonoscopy Post-op diagnosis: same Procedure & Clinicians Study performed: Colonoscopy Same procedure as scheduled: Yes Indications: Screening Surgeon: Dimitri Horan Procedure Notes Procedure in detail: Medications: Conscious sedation using 5mg IV midazolam and 125mcg IV of fentanyl The history and physical was performed/updated and the patient is ASA class is 2. The procedure was discussed in detail with the patient. Potential risks complications including infection, bleeding, missed diagnosis, perforation, need for surgery, and were explained. Their questions were answered and informed consent was obtained. Patient was brought to the procedure room and placed standard monitoring equipment. The patient's vital signs were monitored continuously throughout the entire procedure. Prior to starting time-out was performed. The patient was placed in the left lateral recumbent position. Procedural sedation was administered. Examination began with a thorough inspection of the perianal area there was no evidence of fissures, fistulae, external hemorrhoids or cutaneous malignancy. The colonoscopy scope was then placed into the anal canal and was advanced to the cecum, which was identified by the ileocecal valve, the appendiceal orifice and the confluence of the taenia. The scope was then slowly withdrawn examining colon thoroughly in all directions, irrigating it of any residual stool. 1. No masses or polyps 2. Diverticulosis The patient tolerated the procedure well. They will be discharged once criteria are met. The prep was of good/excellent quality. The withdrawl time was 6 minutes. The sedation time was 20 minutes. Specimen(s): none sent Complications: none Impression: normal colonoscopy Post-procedure Recommendations: Colonscopy in 10 years Disposition: same day surgery
[2021-05-13 16:28] VITALS: BP 113/68; PULSE 90; RESP 16; TEMP 36.7; O2SAT 96
[2021-05-13 16:33] VITALS: BP 94/64; PULSE 92; RESP 18; O2SAT 97
[2021-05-13 16:38] VITALS: BP 101/67; PULSE 75; RESP 18; O2SAT 99
[2021-05-13 16:43] VITALS: BP 100/68; PULSE 68; RESP 16; O2SAT 98
[2021-05-13 16:48] VITALS: BP 105/68; PULSE 76; RESP 16; TEMP 36.6; O2SAT 97
== END 2021-05-13 16:55 | disposition home or self-care (01) ==
PROVIDERS: PCP Student in an Organized Health Care Education/Training Program; Referring Provider Surgery; Visit Provider Surgery
PROC: 0DJD8ZZ Inspection of Lower Intestinal Tract, Via Natural or Artificial Opening Endoscopic (ICD-10-PCS; CPT 45378; principal; 2021-05-13 16:00)
DX: Z12.11 Encounter for screening for malignant neoplasm of colon (principal); K57.30 Diverticulosis of large intestine without perforation or abscess without bleeding
CPT/HCPCS: 45378; 99152; J2250; J3010

== ENCOUNTER 2021-12-13 02:14 | Observation (INO) | payer OTHER, SELFPAY ==
[2021-12-13] VITALS (9 sets, daily range): BP systolic 107–152; BP diastolic 63–88; PULSE 65–89; RESP 12–18; TEMP 36.2–37.2; O2SAT 94–100; BMI 34.5
--- NOTE | 2021-12-13 | PATH_ITS ---
[facility] Accession Number: [id number] No. of containers..01 Tissue . 01 Material submitted: . appendix - APPENDIX . 02 Diagnosis: Appendix, Appendectomy: Acute suppurative appendicitis with serositis. Negative for dysplasia and malignancy. MRV 12/17/2021 1245 Local . 02 Electronically signed: . Yari Browning MD, Pathologist NPI- [id number] . 01 Gross description: . Received in formalin, labeled with the patient's name and additionally) labeled appendix, is a vermiform appendix measuring 8.5 cm in length and up to 1.2 cm in greatest diameter. There is an attached mesoappendix measuring 7.0 x 3.0 x 1.8 cm. The serosal surface is cedillo-garcia with areas of shaggy exudate. Additionally, a possible rupture site measuring 1.3 x 0.5 cm is seen 2.5 cm from the margin. The margin is inked blue. The specimen is sectioned revealing a dilated lumen measuring 0.9 cm in greatest dimension and wall thickness averaging 1-2 mm. No other masses or lesions are identified. Antenna Rigger sections are submitted in cassettes A1 and A2 with the blue-inked tip and area of potential rupture in cassette A1 and the bisected tip in cassette A2. ([id number]) /MRV 12/15/2021 1340 Local . 02 Pathologist provided ICD-10: K35.80 . 02 CPT . 198484 Specimen Comment: A courtesy copy of this report has been sent to [phone] Performed at: [facility], [place], [place] [id number] MD Mike Lorenz MD Phone: [phone] Performed at: [address] [facility] [id number] [place] [id number] MD Yari Browning MD Phone: [phone]
[2021-12-13 02:44] LABS: Alanine Aminotransferase 14 IU/L (<35); Albumin 4.2 g/dL (3.5-5.0); Albumin Globulin Ratio 1.2 (1.0-2.8); Alkaline Phosphatase 61 U/L (38-126); Aspartate Aminotransferase 23 IU/L (14-36); BUN Creatinine Ratio 30.8 (6-22); Bilirubin Total 0.8 mg/dL (0.2-1.3); Blood Urea Nitrogen 24 mg/dL (7-17); Calcium 9.4 mg/dL (8.4-10.2); Carbon Dioxide 26 mmol/L (22-32); Chloride 103 mmol/L (98-107); Estimated Glomerular Filt Rate > 60.0 mL/min (>60); Globulin 3.4 g/dL (1.7-4.1); Glucose 117 mg/dL (70-100); Lipase 72 U/L (23-300); Sodium 134 mmol/L (137-145); Total Protein 7.6 g/dL (6.3-8.2)
[2021-12-13 02:48] LABS: HEMOLYSIS 56 (0-50)
[2021-12-13 02:51] LABS: Potassium 4.4 mmol/L (3.4-5.1)
[2021-12-13 03:04] LABS: Add Manual Diff / Slide Review NO; Basophils Absolute Auto 0 /uL (0-100); Basophils Percent Auto 0.3 % (0-2); Eosinophils Absolute Auto 100 /uL (0-450); Eosinophils Percent Auto 1.3 % (2-4); Hematocrit 36.2 % (36-46); Hemoglobin 12.5 g/dL (12.0-16.0); Lymphocytes Absolute Auto 1200 /uL (1100-4500); Lymphocytes Percent Auto 16.8 % (25-40); Mean Corpuscular HGB Conc 34.4 % (30-36); Mean Corpuscular Hemoglobin 30.7 PG (26-34); Mean Corpuscular Volume 89.2 fL (80-100); Monocytes Absolute Auto 600 /uL (0-900); Monocytes Percent Auto 8.9 % (3-14); Neutrophils Absolute Auto 5200 /uL (1500-7000); Neutrophils Percent Auto 72.7 % (50-75); Platelet Count 304 X10^3/uL (150-400); Red Blood Cell Count 4.06 X10^6/uL (4.0-5.2); Red Cell Distribution Width 12.6 % (11.6-14.8); White Blood Cell Count 7.1 X10^3/uL (4.5-11.0)
--- NOTE | 2021-12-13 03:04 | ED_ITS ---
HPI - General Adult General Chief complaint: Abdominal Pain Stated complaint: Sharp pain in lower abd Time Seen by Provider: 12/13/21 02:38 Source: patient and family Mode of arrival: Ambulatory History of Present Illness HPI narrative: 51-year-old woman with no significant medical history presents with right lower quadrant pain. Started with cramping abdominal pain at approximately 3:00 a.m. this afternoon following a brief episode of diarrhea. She was initially wondering if it was related to foods that she ate. She tried some Pepto-Bismol with no relief. Pain has progressed over last 12 hours and now is radiating out from the right lower quadrant toward the umbilicus, increasingly uncomfortable and bloated. She denies fever, cough, chills, vomiting, dysuria, flank pain, chest pain, palpitations, dyspnea or orthopnea. No headaches and no paresthesias or weakness appreciated. Related Data Home Medications Medication Instructions Recorded Confirmed ibuprofen 200 mg tablet 200 mg PO Q6H PRN 05/08/18 05/13/21 pyridoxine (vitamin B6) 100 mg 100 mg DAILY 08/07/19 05/13/21 tablet (Vitamin B-6) Allergies Allergy/AdvReac Type Severity Reaction Status Date / Time No Known Drug Allergies Allergy Verified 04/12/21 14:59 Review of Systems Review of Systems Narrative: Remainder of complete review of systems is otherwise unremarkable except for that included in the HPI. Patient History Medical History (Updated 12/13/21 @ 05:47 by Rayna Katz MD) Chlamydia (~1994) Eczema (~1983) Genital warts (~1992) Herpes (~1998) Melanoma (~2012) Surgical History Anesthesia History of surgery (~2012) Status post breast lumpectomy (~2012) Status post delivery (~2002) Status post delivery (~2000) Family History Father Age: 73 COPD (chronic obstructive pulmonary disease) Grandfather Breast cancer Social History household members: significant other and children Smoking Status: Never smoker alcohol intake: current Smoking Status: Never smoker alcohol intake frequency: 3 or more drinks per day Alcohol type: wine and hard liquor Substance Use Type: does not use Exam Initial Vital Signs Initial Vital Signs: Vital Signs Temperature 97.8 F 12/13/21 02:15 Pulse Rate 89 12/13/21 02:15 Respiratory Rate 16 12/13/21 02:15 Blood Pressure 152/82 H 12/13/21 02:15 Pulse Oximetry 96 12/13/21 02:15 General: Healthy appearing, in no acute distress. Able to give a complete and coherent history. Well-nourished well-developed HEENT: Moist mucous membranes, normal sclera with reactive pupils, Neck: No JVD, supple Respiratory: Lungs are clear to auscultation, no wheezing no rales no rhonchi. Full and symmetrical air movement Cardiac: Regular rate and rhythm no murmurs no bruits Abdomen: Soft, hypoactive bowel tones. Significant right lower quadrant tenderness with developing peritoneal signs. Moderate tenderness periumbilical with mild tenderness in other quadrants. No flank pain Skin: Warm and dry, no rashes Neurologic: Grossly neurologically intact with no obvious asymmetries or abnormalities Extremities: No trauma, well perfused Psych: Cooperative, appropriate insight and affect Course Orders Ordered: ED Orders 12/13/21 02:26 EKG-12 Lead Stat 12/13/21 02:28 Comprehensive Metabolic Panel Stat Lipase Stat 12/13/21 02:54 Complete Blood Count AUTO DIFF Stat 12/13/21 02:55 Urine Culture Stat Urine Microscopic Stat 12/13/21 03:21 CT abdomen pelvis w con Stat 12/13/21 04:45 COVID19 -Nasal swab/Pre-Proc Stat Hydromorphone HCl (Hydromorphone 1 Mg Inj) 0.5 mg IV Q15MIN PRN PRN Reason: Pain, Last Admin: 12/13/21 04:39 Dose: 0.5 mg Documented by: JOSE Sodium Chloride (Normal Saline 0.9%) 1,000 mls @ 150 mls/hr IV CONT AROLDO Last Infusion: 12/13/21 05:18 Dose: 0 mls/hr Documented by: Admin: 12/13/21 04:38 Dose: 150 mls/hr Documented by: JOSE Sodium Chloride (Normal Saline 0.9%) 1,000 mls @ 125 mls/hr IV CONT AROLDO Last Admin: 12/13/21 05:32 Dose: 125 mls/hr Documented by: LALY Discontinued Medications Hydromorphone HCl (Hydromorphone 0.5 Mg Inj) 0.5 mg IV Q15MIN PRN PRN Reason: Pain, Piperacillin Sod/Tazobactam (Sod 4.5 gm/ Sodium Chloride) 100 mls @ 200 mls/hr IV NOW ONE Stop: 12/13/21 04:26 Last Infusion: 12/13/21 05:18 Dose: 0 mls/hr Documented by: Admin: 12/13/21 04:39 Dose: 200 mls/hr Documented by: JOSE Ondansetron HCl (Ondansetron 4 Mg/2 Ml Inj) 4 mg IV NOW ONE Stop: 12/13/21 04:23 Last Admin: 12/13/21 04:39 Dose: 4 mg Documented by: JOSE Vital Signs Vital signs: Vital Signs - 8 hr 12/13/21 02:15 12/13/21 04:29 Temperature 97.8 F Pulse Rate 89 74 Respiratory Rate 16 18 Blood Pressure 152/82 H 146/77 H Pulse Oximetry 96 100 Medical Decision Making Lab Data Result diagrams: 12/13/21 02:54 12/13/21 02:28 Labs: Lab Results 12/13/21 12/13/21 12/13/21 Range/Units 02:28 02:54 02:55 WBC 7.1 (4.5-11.0) X10^3/uL RBC 4.06 (4.0-5.2) X10^6/uL Hgb 12.5 (12.0-16.0) g/dL Hct 36.2 (36-46) % MCV 89.2 (80-100) fL MCH 30.7 (26-34) PG MCHC 34.4 (30-36) % RDW 12.6 (11.6-14.8) % Plt Count 304 (150-400) X10^3/uL Neut % (Auto) 72.7 (50-75) % Lymph % (Auto) 16.8 L (25-40) % [place] % (Auto) 8.9 (3-14) % Eos % (Auto) 1.3 L (2-4) % Baso % (Auto) 0.3 (0-2) % Neut # (Auto) 5200 (4598-7046) /uL Lymph # (Auto) 1200 (6558-6891) /uL [place] # (Auto) 600 (0-900) /uL Eos # (Auto) 100 (0-450) /uL Baso # (Auto) 0 (0-100) /uL Sodium 134 L (137-145) mmol/L Potassium 4.4 (3.4-5.1) mmol/L Chloride 103 (98-107) mmol/L Carbon Dioxide 26 (22-32) mmol/L BUN 24 H (7-17) mg/dL Creatinine 0.78 (0.52-1.04) mg/dL Estimated GFR > 60.0 (>60) mL/min BUN/Creatinine Ratio 30.8 H (6-22) Glucose 117 H (70-100) mg/dL Calcium 9.4 (8.4-10.2) mg/dL Total Bilirubin 0.8 (0.2-1.3) mg/dL AST 23 (14-36) IU/L ALT 14 (<35) IU/L Alkaline Phosphatase 61 (38-126) U/L Total Protein 7.6 (6.3-8.2) g/dL Albumin 4.2 (3.5-5.0) g/dL Globulin 3.4 (1.7-4.1) g/dL Albumin/Globulin Ratio 1.2 (1.0-2.8) Lipase 72 (23-300) U/L Urine RBC 1-5/hpf (0-5/HPF) Urine WBC 10-30/hpf H (0-5/HPF) Ur Squamous Epith Cells 1-5 /hpf (0-5/HPF) Ur Transition Epith Cell 0-1/hpf (0-5/HPF) Urine Bacteria Few (2-10) H (None) Ur Culture Indicated? Specimen cultured Point of Care Testing Test Results Negative Urine Dip Bedside Urine Glucose Negative Bedside Urine Bilirubin - Negative Bedside Urine Ketone - Negative Urine Specific [place] 1.025 Bedside Urine Occult Blood +++ Bedside Urine pH 6 Bedside Urine Protein - Negative Bedside Urine Urobilinogen - Negative Bedside Urine Nitrite - Negative Bedside Urine Leukocytes ++ 125 Esterase Point of care testing: Point of Care Testing Test Results Negative Urine Dip Bedside Urine Glucose Negative Bedside Urine Bilirubin - Negative Bedside Urine Ketone - Negative Urine Specific [place] 1.025 Bedside Urine Occult Blood +++ Bedside Urine pH 6 Bedside Urine Protein - Negative Bedside Urine Urobilinogen - Negative Bedside Urine Nitrite - Negative Bedside Urine Leukocytes ++ [address] scan - abdomen/pelvis: Radiologist's Impression: Findings compatible with acute appendicitis.? No pierce appendiceal focal drainable collection or pneumoperitoneum.? Appendix is dilated with submucosal enhancement and measures 16 mm with periappendiceal inflammation changes and appendicoliths present. Funmi Peterson MD ECG Data Interpretation: Sinus rhythm at a rate of 73 Normal axis, normal intervals No acute ischemic changes MDM Narrative Medical decision making narrative: Otherwise healthy 51-year-old woman with progressive right lower quadrant pain over the last [address] scan suggests acute appendicitis. No evidence of sepsis, perforation, pneumoperitoneum, kidney stone or alternate explanation for the acute right lower quadrant pain. Care is reviewed with Dr. Pearson, general surgeon. Patient is started on Zosyn and anticipated course of hospital stay is reviewed. She is transferred to the floor with transitional orders written for General surgery. Discharge Plan Departure Patient Disposition: Admitted as Observation Clinical Impression: Acute appendicitis Admit Date/Time: 12/13/21 04:30 Admit Provider: Keegan Pearson
[2021-12-13 03:10] LABS: Bacteria Urine Few (2-10); RBC Urine 1-5/HPF (0-5/HPF); Squamous Epithelial Cell Urine 1-5 /HPF (0-5/HPF); WBC Urine 10-30/HPF (0-5/HPF)
[2021-12-13 03:11] LABS: Transitional Epi Cells Urine 0-1/HPF (0-5/HPF)
[2021-12-13 03:12] LABS: Culture Indicated Urine Specimen Cultured
--- NOTE | 2021-12-13 03:21 | DI.CT.S_ITS ---
PROCEDURE: CT ABDOMEN PELVIS W CON INDICATIONS: Suspected appendicitis, right lower quadrant pain TECHNIQUE: After the administration of IV contrast, axial sections were acquired from the lung bases to the pubic symphysis. Coronal and sagittal reformats were performed. For radiation dose reduction, the following was used: automated exposure control, adjustment of mA and/or kV according to patient size. COMPARISON: None. FINDINGS: Image quality: Excellent. Lung bases: Unremarkable. Heart: No significant findings. ABDOMEN: Liver: Unremarkable. Gallbladder: Unremarkable. Biliary ducts: Unremarkable. Pancreas: Unremarkable. Spleen: Unremarkable. Adrenal Glands: Unremarkable. Kidneys and Ureters: Unremarkable. Stomach and Bowel: Appendix is enlarged measuring 13 mm in caliber. There are appendicoliths. Periappendiceal fat stranding is present. There is a small amount of free fluid in the right pericolic gutter. The CT findings are consistent with acute appendicitis. A few colonic diverticula are present. No diverticulitis. Peritoneum: No abnormal intraperitoneal fluid. No free air. Ventral Wall: No hernia. Abdominal Nodes: No retroperitoneal or mesenteric adenopathy by size criteria. Vessels: Aorta and inferior vena cava are normal in size. PELVIS: Pelvic Organs: There is a low-density mass in the anterior uterine wall measuring 3.3 x 4.2 x 3.1 cm, compatible with a uterine leiomyoma. Ovaries are grossly normal. No pathological free-fluid in the cul-de-sac or adnexa. Bladder: Unremarkable. Pelvic Nodes: No enlarged lymph nodes. Miscellaneous: No inguinal hernias are seen. Bones: Unremarkable. IMPRESSION: 1. Acute appendicitis. No perforation or appendiceal abscess. 2. Diverticulosis without diverticulitis. 3. A 3.3 x 4.2 x 3.1 cm uterine leiomyoma. No significant discrepancy with the production supervisor off shift radiology preliminary report. Dictated by: Jaden Crockett M.D. on 12/13/2021 at 7:46 Approved by: Jaden Crockett M.D. on 12/13/2021 at 7:54
[2021-12-13] MEDS: SODIUM CHLORIDE 0.9% 1,000 ML 150 ML IV (04:38)
[2021-12-13] MEDS: ONDANSETRON 4 MG/2 ML INJ IV (04:39)
[2021-12-13] MEDS: HYDROMORPHONE 1 MG INJ 0.5 MG IV ×3 (04:39→11:02)
[2021-12-13] MEDS: PIPERACILLIN/TAZO 4.5 GM in SODIUM CHLORIDE 0.9% 100 ML 200 ML IV ×2 (04:39→12:18)
[2021-12-13 05:04] LABS: COVID19 -Nasal RAPID Negative (Negative)
[2021-12-13] MEDS: SODIUM CHLORIDE 0.9% 1,000 ML 125 ML IV (05:32)
--- NOTE | 2021-12-13 09:59 | P.HP_ITS ---
History of Present Illness History of Present Illness Date Patient Seen: 12/13/21 Time Patient Seen: 10:00 Chief complaint: Sharp pain in lower abd Narrative: The patient is a 51-year-old woman who presented with 24 hours of right lower quadrant pain. CT scan in the emergency room showed acute uncomplicated appendicitis. Patient History Medical History (Updated 12/13/21 @ 10:01 by Keegan Pearson MD) Chlamydia (~1994) Eczema (~1983) Genital warts (~1992) Herpes (~1998) Melanoma (~2012) Surgical History Anesthesia History of surgery (~2012) Status post breast lumpectomy (~2012) Status post delivery (~2002) Status post delivery (~2000) Family & Social History Family History Father Age: 73 COPD (chronic obstructive pulmonary disease) Grandfather Breast cancer Social History: household members significant other,children Prior Living Arrangements House Safety & Behavioral: Feels Safe in Current Yes Environment Been Physically Hurt or No Threatened By a Person Suicidal Ideation Description None Suicide Plan Description No Plan Tobacco & Substance use: Smoking Status Never smoker alcohol intake current alcohol intake frequency 0-2 drinks per day Substance Use Type does not use Meds Home Medications and Allergies Home Medications Medication Instructions Recorded Confirmed Type ibuprofen 200 mg tablet 600 mg PO TID 05/08/18 12/13/21 History acetaminophen 325 mg capsule 325 mg PO DAILY 12/13/21 12/13/21 History Allergies Allergy/AdvReac Type Severity Reaction Status Date / Time No Known Drug Allergies Allergy Verified 04/12/21 14:59 Exam Vital Signs (past 8 hours): - 12/13/21 02:15 12/13/21 04:29 12/13/21 05:25 Temperature 97.8 F 97.7 F Pulse Rate 89 74 69 Respiratory Rate 16 18 14 Blood Pressure 152/82 H 146/77 H 128/72 Pulse Oximetry 96 100 98 12/13/21 08:15 Temperature 97.7 F Pulse Rate 74 Respiratory Rate 16 Blood Pressure 139/85 Pulse Oximetry 100 Oxygen Delivery Method Room Air Oxygen Flow Rate 0 Const General: healthy appearing Resp Effort & Inspection: normal respiratory effort GI Other: Tender in the right lower quadrant Objective Labs Result Diagrams: 12/13/21 02:54 12/13/21 02:28 Labs: Laboratory Results - last 24 hr 12/13/21 12/13/21 12/13/21 02:28 02:54 02:55 WBC 7.1 RBC 4.06 Hgb 12.5 Hct 36.2 MCV 89.2 MCH 30.7 MCHC 34.4 RDW 12.6 Plt Count 304 Neut % (Auto) 72.7 Lymph % (Auto) 16.8 L [place] % (Auto) 8.9 Eos % (Auto) 1.3 L Baso % (Auto) 0.3 Neut # (Auto) 5200 Lymph # (Auto) 1200 [place] # (Auto) 600 Eos # (Auto) 100 Baso # (Auto) 0 Sodium 134 L Potassium 4.4 Chloride 103 Carbon Dioxide 26 BUN 24 H Creatinine 0.78 Estimated GFR > 60.0 BUN/Creatinine Ratio 30.8 H Glucose 117 H Calcium 9.4 Total Bilirubin 0.8 AST 23 ALT 14 Alkaline Phosphatase 61 Total Protein 7.6 Albumin 4.2 Globulin 3.4 Albumin/Globulin Ratio 1.2 Lipase 72 Urine RBC 1-5/hpf Urine WBC 10-30/hpf H Ur Squamous Epith Cells 1-5 /hpf Ur Transition Epith Cell 0-1/hpf Urine Bacteria Few (2-10) H Ur Culture Indicated? Specimen cultured SARS-CoV-2 (PCR) 12/13/21 04:45 WBC RBC Hgb Hct MCV MCH MCHC RDW Plt Count Neut % (Auto) Lymph % (Auto) [place] % (Auto) Eos % (Auto) Baso % (Auto) Neut # (Auto) Lymph # (Auto) [place] # (Auto) Eos # (Auto) Baso # (Auto) Sodium Potassium Chloride Carbon Dioxide BUN Creatinine Estimated GFR BUN/Creatinine Ratio Glucose Calcium Total Bilirubin AST ALT Alkaline Phosphatase Total Protein Albumin Globulin Albumin/Globulin Ratio Lipase Urine RBC Urine WBC Ur Squamous Epith Cells Ur Transition Epith Cell Urine Bacteria Ur Culture Indicated? SARS-CoV-2 (PCR) Negative Assessment & Plan Assessment and plan (1) Acute appendicitis: Qualifiers: Acute appendicitis type: unspecified acute appendicitis type Qualified Code(s): K35.80 - Unspecified acute appendicitis Status: Acute Plan Discussed risks and benefits of laparoscopic appendectomy. Discussed alternative of IV antibiotic therapy alone. She would like to proceed with surgery. Has been on Zosyn since she was admitted. We will proceed today. Time Spent With Patient Critical Care time: I spent a total of [] minutes of critical care time on this patient's care today; this time is exclusive of procedural time.
--- NOTE | 2021-12-13 11:08 | PC.NURSE ---
Addendum entered by Chary Kumari R.N. 12/13/21 17:05: Pt arrived from PACU this afternoon at 1415 alert, reporting minimal pain to abdomen, yet pain to her back 7/10. She reports she has chronic back pain and takes ibuprofen at home. She is given PRN tylenol and Ibuprofen this afternoon per request with good effect, reporting pain level back down to 3-5/10. She is able to get to the bathroom and void, and tolerate po intake this afternoon. MD Henderson at bedside this afternoon clearing patient for discharge home. Lap sites C/D/I/, BS hypoactive. VSS, afebrile on RA. She states she is eager to discharge home. She verbalizes understanding of site care, follow up, activity limitations and medications, as well as signs and symptoms of infection. She is escorted via w/ch to [facility] with all her belongings for transport home with her in private vehicle. Original Note: Pt received lying in bed Alert&OX3, afebrile on RA. She reports not sleeping well and looking forward to having the procedure. She sits with her knees bent up stating it reliefs her RLQ pain some. Medicated with PRN 0.5mg Hydromorphone with good effect. She denies nausea, but reports my stomach is not a happy camper. IVF NS at 125ml/hr. Patient is able to walk independently in her room and to the [facility]. At 1110 she is transported via bed to [facility].
[2021-12-13] MEDS: LACTATED RINGERS 1,000 ML 125 ML IV ×2 (12:00→13:27)
--- NOTE | 2021-12-13 12:35 | CM.DANOTE ---
DCP: Case received, EMR reviewed and met with patient. Introduced self and role. Was able to obtain information regarding patient/s baseline activity level at home prior to hospitalization. DCP assessment completed with information currently available. Patient is a 51 year old female who admitted early this morning to the care of the hospitalist team. PCP: Dr. Spears. Payer: confirmed: [employer]. Patient came to the hospital via private vehicle secondary to right abdominal quadrant pain. Patient holds current diagnosis of acute appendicitis. Patient is scheduled for surgery later this morning. Met with patient in her room. She is alert and oriented, pleasant. She resides here in [place] with her significant other, Timo. She is independent at her baseline. 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 P: DCP to continue to follow. Patient should be able to go home when she is deemed medically stable. Basilia Haynes RN/Tool Grinding Machine Operator Discharge Planning/Care Management CM Discharge Assessment Start: 12/13/21 12:33 Freq: Status: Active Protocol: Document 12/13/21 12:33 (Rec: 12/13/21 12:35 [id number]) Discharge Planning Assessment Assigned Meteorological Equipment Repairer Basilia Haynes RN/Tool Grinding Machine Operator Advance Directives? No History Provided By Patient,Medical Record Prior Living Arrangements House Household Members significant other,children Type of transporation used prior to Drives own vehicle admit Independent with ADL's Yes Is patient alert and oriented? Yes Caregiver for Another No Barriers to Discharge No Discharge Plan Home Transportation Arrangement Spouse Referrals Initiated None needed Whiteboard Updated in Patient Room with Yes name and ext. # of Meteorological Equipment Repairer Review Status In Process Next Review Type Continued Stay Review
--- NOTE | 2021-12-13 12:55 | SUR.OPER ---
Supine on padded OR bed, head on pillow, arms padded and tucked at sides, legs uncrossed, safety belt at thigh, tape over blanket over lower legs .
[2021-12-13] MEDS: BUPIVACAINE 0.25% (PF) VIAL 30 ML INJ (13:08)
--- NOTE | 2021-12-13 13:53 | PM.OP.1 ---
Operative Date/Time/Diagnoses Date of procedure: 12/13/21 Time of procedure: 13:54 Pre-op diagnosis: Acute appendicitis Post-op diagnosis: same Procedure & Clinicians Procedure: Laparoscopic appendectomy Same procedure as scheduled: Yes Indications: Acute appendicitis Surgeon: Keegan Pearson Anesthesia Type: General Operative Notes Findings: Inflamed, dilated appendix without gross perforation Procedure in detail: Procedure in detail: The patient was on IV antibiotics. The patient was brought to the operating room, placed on the table in the supine position and general endotracheal anesthesia was induced. A time-out was performed. The abdomen was prepped and draped in the usual fashion. After injection of 0.25% Marcaine a 1 cm infraumbilical incision was created with a 15 blade scalpel. The umbilical stalk was grasped with a Radha clamp to elevate the abdominal wall. The infraumbilical midline fascia was cleared over 1 cm and the fascia was scored with cautery. The peritoneum was pierced with a Peon clamp. The Ren port was placed and the abdomen was insufflated to 15 mmHg. The camera was inserted and there was no evidence of any injury from the entry. Next, 5 mm ports were placed in the suprapubic and left lower quadrant positions under direct vision. The patient was placed in Trendelenburg with the right-side elevated. The terminal ileum was swept away from the cecum and the appendix was visualized. The appendix was inflamed and distended but not perforated and there was no evidence of gangrene. The mesoappendix was divided with the LigaSure to the base. Two PDS Endoloops were placed at the base and a 3rd endoloop was placed about a cm distally and the appendix was divided sharply. The specimen was placed in a Endo-Catch bag. A small amount of fluid with suction from the base of the appendix and pelvis. The table was flattened and the terminal ileum and omentum were allowed to slide in over the appendiceal stump. Finally, the 5 mm ports were removed under direct vision. The pneumoperitoneum was released and the Ren port was removed followed by the Endo-Catch bag. Additional local was injected into the fascia and the infraumbilical incision was closed with 2 interrupted 2-0 Vicryl sutures. The skin incisions were closed with 4 Monocryl. Steri-Strips were applied followed by Band-Aids. EBL: 5 mL Specimen: Appendix Post-operative Condition: stable Disposition: PACU
--- NOTE | 2021-12-13 14:28 | SUR.PHASEI ---
Pt met criteria. Transfer to floor via bed after report to Chary CHESTER. Wide awake,alert,oriented x 4. vss. no changes with op site. no pain or nausea. tolerating po water. underwear on bed in bag labeled.
[2021-12-13] MEDS: ACETAMINOPHEN 325 MG TABLET 650 MG PO (14:48)
[2021-12-13] MEDS: IBUPROFEN 600 MG TABLET PO (14:49)
[2021-12-13] MEDS: LACTATED RINGERS 1,000 ML 100 ML IV (14:50)
--- NOTE | 2021-12-23 16:40 | PC.NURSE ---
Late Entry; NS infusion initiated at 0532 stopped by d/c order at 1426. LR infusion initiated at 1450, stopped by discharge 1630.
== END 2021-12-13 16:30 | disposition home or self-care (01) ==
LOC: ED 02:38 → AC 05:47
PROVIDERS: Admitting Provider Surgery; Emergency Provider Emergency Medicine; PCP Student in an Organized Health Care Education/Training Program; Referring Provider Emergency Medicine; Visit Provider Surgery
PROC: 0DTJ4ZZ Resection of Appendix, Percutaneous Endoscopic Approach (ICD-10-PCS; CPT 44970; principal; 2021-12-13 11:45)
DX: K35.80 Unspecified acute appendicitis (principal); Z20.822 Contact with and (suspected) exposure to COVID-19
CPT/HCPCS: 44970; 36415; 74177; 80053; 81003; 81015; 81025; 83690; 85025; 87086; 87635; 93005; 93010; 96361; 96365; 96375; 99219; 99284; C9803; G0378; J1100; J1170; J1885; J2405; J2543; J3010; Q9967

== ENCOUNTER → 2022-06-03 09:11 | Outpatient (CLI) | payer OTHER, SELFPAY ==
[2021-12-13 05:33] VITALS: BMI 34.5
--- NOTE | 2022-06-03 | DI.MG.S_ITS ---
BILATERAL DIGITAL SCREENING MAMMOGRAM 3D/2D WITH CAD: 06/03/2022 CLINICAL: Routine screening. Personal history of right breast cancer. Family history of breast cancer. Comparison is made to exams dated: 05/03/2021 mammogram, 10/21/2020 mammogram, and 09/03/2019 mammogram - . There are scattered fibroglandular elements in both breasts. Current study was also evaluated with a Computer Aided Detection (CAD) system. There are benign post operative findings and biopsy clip in the right breast. No significant masses, calcifications, or other findings are seen in either breast. There has been no significant interval change. IMPRESSION: BENIGN There is no mammographic evidence of malignancy. A 1 year screening mammogram is recommended. This exam was interpreted at Station ID: [id number]. NOTE: For mammograms, a report in lay terms will be sent to the patient. Approximately 15% of breast malignancies will not be visualized mammographically. In the management of a palpable breast mass, a negative mammogram must not discourage biopsy of a clinically suspicious lesion. Electronically Signed By: Rosey ross/blu:06/03/2022 15:44:54 letter sent: Normal Exam ACR BI-RADS Category 2: Benign Finding(s) 3342F
== END ==
PROVIDERS: PCP Student in an Organized Health Care Education/Training Program; Referring Provider Student in an Organized Health Care Education/Training Program; Visit Provider Student in an Organized Health Care Education/Training Program
DX: Z12.31 Encounter for screening mammogram for malignant neoplasm of breast (principal); Z85.3 Personal history of malignant neoplasm of breast; Z80.3 Family history of malignant neoplasm of breast
CPT/HCPCS: 77063; 77067

== ENCOUNTER → 2022-06-13 16:27 | Outpatient (CLI) | payer OTHER, SELFPAY ==
[2021-12-13 05:33] VITALS: BMI 34.5
--- NOTE | 2022-06-13 16:28 | DI.RAD.S_ITS ---
PROCEDURE: XR CALCANEOUS LT MIN 2V INDICATIONS: Left heel pain w/o injury TECHNIQUE: Two views of the calcaneus were acquired. COMPARISON: None. FINDINGS: Bones: No fractures or dislocations. No suspicious bony lesions. Retrocalcaneal plantar bone spurs. Soft tissues: No suspicious calcifications. Achilles tendon appears normal. IMPRESSION: 1. Calcaneal enthesopathy. Dictated by: Yordan Deleon [facility] Interpreted: Sami Zaragoza MD on 06/13/2022 at 16:49 Transcribed by: [email or web address] on 06/13/2022 at 16:50 Approved by: Sami Zaragoza M.D. on 06/13/2022 at 18:00
== END ==
PROVIDERS: PCP Student in an Organized Health Care Education/Training Program; Referring Provider Student in an Organized Health Care Education/Training Program; Visit Provider Student in an Organized Health Care Education/Training Program
DX: M77.32 Calcaneal spur, left foot (principal); M79.672 Pain in left foot
CPT/HCPCS: 73650

== ENCOUNTER → 2023-06-08 14:33 | Outpatient (CLI) | payer OTHER, SELFPAY ==
[2021-12-13 05:33] VITALS: BMI 34.5
--- NOTE | 2023-06-08 14:51 | DI.MG.S_ITS ---
Patient Name: DELANO MARQUES date: 1970 Sex: F Attending Physician: Francisco Indications: Date: 06/08/2023 19:48 At the request of: JAREK KENT Procedure: MM screening mammo BI BILATERAL DIGITAL SCREENING MAMMOGRAM 3D/2D WITH CAD POST LUMPECTOMY: 06/08/2023 CLINICAL: Routine screening. Personal history of right breast cancer. Family history of breast cancer. Comparison is made to exams dated: 05/03/2021 mammogram, 06/03/2022 mammogram, 10/21/2020 mammogram, 03/20/2020 mammogram, 09/03/2019 mammogram - [facility], and 03/06/2019 specimen - [facility]. There are scattered areas of fibroglandular density in both breasts (category b / 25%-50% glandular tissue). Current study was also evaluated with a Computer Aided Detection (CAD) system. There are benign post operative findings and biopsy clips in the right breast. No significant masses, calcifications, or other findings are seen in either breast. There has been no significant interval change. IMPRESSION: BENIGN There is no mammographic evidence of malignancy. A 1 year screening mammogram is recommended. This exam was interpreted at Station ID: [id number]. NOTE: For mammograms, a report in lay terms will be sent to the patient. Approximately 15% of breast malignancies will not be visualized mammographically. In the management of a palpable breast mass, a negative mammogram must not discourage biopsy of a clinically suspicious lesion. Electronically Signed By: Meghna Parkinson M.D. Continued Report - Page 2 of 2 Patient Name: DELANO MARQUES date: 1970 Sex: F Attending Physician: Francisco Indications: Date: 06/08/2023 19:48 At the request of: JAREK KENT Procedure: MM screening mammo BI esb/:06/08/2023 19:48:34 letter sent: Normal Exam ACR BI-RADS Category 2: Benign Finding(s) 3342F
== END ==
PROVIDERS: PCP Pediatrics; Referring Provider Pediatrics; Visit Provider Pediatrics
DX: Z12.31 Encounter for screening mammogram for malignant neoplasm of breast (principal); Z85.3 Personal history of malignant neoplasm of breast; Z80.3 Family history of malignant neoplasm of breast
CPT/HCPCS: 77063; 77067

== ENCOUNTER → 2024-06-28 14:13 | Outpatient (CLI) | payer OTHER, SELFPAY ==
[2021-12-13 05:33] VITALS: BMI 34.5
--- NOTE | 2024-06-28 14:15 | DI.MG.S_ITS ---
BILATERAL DIGITAL SCREENING MAMMOGRAM 3D/2D WITH CAD: 06/28/2024 CLINICAL: Routine screening. Personal history of right breast cancer. Comparison is made to exams dated: 06/08/2023 mammogram, 06/03/2022 mammogram, and 05/03/2021 mammogram - [facility]. There are scattered areas of fibroglandular density in both breasts (category b / 25%-50% glandular tissue). Current study was also evaluated with a Computer Aided Detection (CAD) system. There are benign post operative findings and biopsy clip in the right breast. No significant masses, calcifications, or other findings are seen in either breast. There has been no significant interval change. IMPRESSION: BENIGN There is no mammographic evidence of malignancy. A 1 year screening mammogram is recommended. This exam was interpreted at Station ID: [id number]. NOTE: For mammograms, a report in lay terms will be sent to the patient. Approximately 15% of breast malignancies will not be visualized mammographically. In the management of a palpable breast mass, a negative mammogram must not discourage biopsy of a clinically suspicious lesion. Electronically Signed By: Devon curry/blu:06/28/2024 15:19:29 letter sent: Normal Exam ACR BI-RADS Category 2: Benign Finding(s) 3342F
== END ==
PROVIDERS: Referring Provider Pediatrics; Visit Provider Pediatrics
DX: Z12.31 Encounter for screening mammogram for malignant neoplasm of breast (principal); Z85.3 Personal history of malignant neoplasm of breast; R92.323 Mammographic fibroglandular density, bilateral breasts
CPT/HCPCS: 77063; 77067